=== PATIENT | male | born 1945 | race Caucasian/White ===

== ENCOUNTER 2018-08-22 17:08 | Inpatient (IN) | payer MEDICARE, OTHER ==
[~2018-08-22] VITALS: Ht 165.1 cm; Wt 93.0 kg
[2018-08-22] MEDS ORDERED: MAG HYDROX/AL HYDROX/SIMETH 30 ML UDC PO PRN (17:30)
[2018-08-22] MEDS ORDERED: MAGNESIUM HYDROXIDE 30 ML UDC PO PRN (17:30)
--- NOTE | 2018-08-22 18:00 | NUR ---
RN-CO: DR OTT MADE AWARE OF THE ADMISSION AND GAVE HIS ROUTINE ORDERS NOTED.
[2018-08-22] MEDS ORDERED: GABA-534 PO (18:01)
[2018-08-22] MEDS ORDERED: SENN-168 PO (18:01)
[2018-08-22] MEDS ORDERED: ATOR10TA PO (18:01)
[2018-08-22] MEDS ORDERED: ACAM333T8 PO (18:01)
[2018-08-22] MEDS ORDERED: CHOL400T11 PO (18:01)
[2018-08-22] MEDS ORDERED: FOLI1TAB16 PO (18:01)
[2018-08-22] MEDS ORDERED: CALC650T29 PO (18:01)
[2018-08-22 18:15] VITALS: BP 143/85
--- NOTE | 2018-08-22 18:44 | NUR ---
PT. ARRIVED IN THE VIA A GURNEY AND TRANSPORTED VIA AMBULANCE. PT. CAME FROM [facility]. PER HOLD PT. WITH SUICIDAL IDEATIONS WITH PLAN TO DRINK HIMSELF TO . PT. IS DEPRESSED, HOPELESS AND PARANOID AND UNABLE TO FORM ANY PLAN FOR SELF CARE AT THIS TIME. V/S TAKEN, SKIN ASSESSMENT DONE, CONTRABAND DONE. DR. OTT MADE AWARE OF THE ADMISSION AND WITH ORDERS. SANTOS BAKER PERSON TO NOTIFY WAS NOTIFIED. WILL ENDORSE TO THE INCOMING NURES FOR THE COMPLETION OF THE ADMISSION.
--- NOTE | 2018-08-22 20:12 | NUR ---
PAGED DR. BARAJAS FOR MED RECON.
[2018-08-22 20:38] VITALS: BP 149/81
[2018-08-22] MEDS: TEMAZEPAM 7.5 MG CAPSULE PO PRN ×2 (20:58→22:09)
--- NOTE | 2018-08-22 20:58 | NUR ---
VERBALIZED PLAN TO HURT HIMSELF, DID NOT DISCLOSE HOW TO CARRY OUT PLAN. TEMAZEPAM 15 MG TAB PO GIVEN.
[2018-08-22 21:53] LABS: CHOLESTEROL 147 mg/dL (<200); HDL CHOLESTEROL 53 mg/dL (40-60); LDL 79 mg/dL (0-99); TRIGLYCERIDES 106 mg/dL (30-150)
[2018-08-22] MEDS: GABAPENTIN 300 MG CAPSULE PO SCH (22:13)
[2018-08-22] MEDS: ATORVASTATIN 10 MG TABLET PO SCH (22:13)
[2018-08-23] MEDS: clonazePAM 0.5 MG TABLET PO PRN (03:40)
--- NOTE | 2018-08-23 03:40 | NUR ---
Up to toilet and back to bed, uneasy, moves around, klonopin 0.5 mg tab po given.
[2018-08-23] MEDS: ACETAMINOPHEN 325 MG TABLET PO PRN ×3 (04:35→21:15)
--- NOTE | 2018-08-23 04:35 | NUR ---
C/O FRONTAL PAIN, TYLENOL 650 MG TAB PO GIVEN.
[2018-08-23 06:51] LABS: ALANINE AMINOTRANSFERASE 23 U/L (12-78); ALBUMIN 3.3 g/dL (3.4-5.0); ALKALINE PHOSPHATASE 121 U/L (46-116); ASPARTATE AMINOTRANSFERASE 25 U/L (15-37); BILIRUBIN,TOTAL 0.5 mg/dL (0.2-1.0); CALCIUM, SERUM 9.1 mg/dL (8.5-10.1); CARBON DIOXIDE 26 mmol/L (21-32); CHLORIDE 104 mmol/L (98-107); CREATININE 0.8 mg/dL (0.6-1.3); GLUCOSE 92 mg/dL (74-106); MAGNESIUM 2.1 mg/dL (1.8-2.4); PHOSPHORUS 3.7 mg/dL (2.5-4.9); POTASSIUM 4.1 mmol/L (3.5-5.1); SODIUM SERUM 139 mmol/L (136-145); TOTAL PROTEIN, SERUM 6.7 g/dL (6.4-8.2); UREA NITROGEN, BLOOD 16 mg/dL (7-18)
[2018-08-23 07:40] LABS: CHOLESTEROL 138 mg/dL (<200); HDL CHOLESTEROL 49 mg/dL (40-60); LDL 77 mg/dL (0-99); TRIGLYCERIDES 99 mg/dL (30-150)
[2018-08-23 08:00] VITALS: BP 142/75
[2018-08-23] MEDS: CALCIUM CARB 600MG /VIT D 1 EACH TABLET PO SCH (08:36)
[2018-08-23] MEDS: FOLIC ACID 1 MG TABLET PO SCH (08:37)
[2018-08-23] MEDS: CHOLECALCIFEROL (VITAMIN D 3) 400 UNIT TABLET PO SCH (08:37)
[2018-08-23] MEDS: SENNOSIDES 8.6 MG TABLET PO SCH ×2 (08:41→16:24)
[2018-08-23 15:59] VITALS: BP 146/85
[2018-08-23 20:00] VITALS: BP 124/81
[2018-08-23] MEDS: GABAPENTIN 300 MG CAPSULE PO SCH (21:15)
[2018-08-23] MEDS: ATORVASTATIN 10 MG TABLET PO SCH (21:15)
[2018-08-23] MEDS: TEMAZEPAM 7.5 MG CAPSULE PO PRN (21:16)
[2018-08-24 08:00] VITALS: BP 119/84
[2018-08-24] MEDS: CALCIUM CARB 600MG /VIT D 1 EACH TABLET PO SCH (08:43)
[2018-08-24] MEDS: FOLIC ACID 1 MG TABLET PO SCH (08:44)
[2018-08-24] MEDS: CHOLECALCIFEROL (VITAMIN D 3) 400 UNIT TABLET PO SCH (08:44)
[2018-08-24] MEDS: SENNOSIDES 8.6 MG TABLET PO SCH ×2 (08:50→16:02)
[2018-08-24] MEDS: ESCITALOPRAM OXALATE (10 MG) 10 MG TABLET PO SCH (10:57)
[2018-08-24] MEDS: risperiDONE 1 MG TABLET PO SCH ×2 (10:57→16:00)
[2018-08-24] MEDS: ACETAMINOPHEN 325 MG TABLET PO PRN (11:01)
[2018-08-24] MEDS: HYDROCODONE/APAP 5/325MG 1 EACH TABLET PO PRN (16:02)
[2018-08-24 16:22] VITALS: BP 127/79
[2018-08-24 20:00] VITALS: BP 130/74
[2018-08-24] MEDS: GABAPENTIN 300 MG CAPSULE PO SCH (21:22)
[2018-08-24] MEDS: ATORVASTATIN 10 MG TABLET PO SCH (21:22)
[2018-08-24] MEDS: TEMAZEPAM 7.5 MG CAPSULE PO PRN (23:17)
[2018-08-25] MEDS: HYDROCODONE/APAP 5/325MG 1 EACH TABLET PO PRN ×3 (03:38→21:17)
[2018-08-25 08:00] VITALS: BP 129/63
[2018-08-25] MEDS: ESCITALOPRAM OXALATE (10 MG) 10 MG TABLET PO SCH (09:05)
[2018-08-25] MEDS: CALCIUM CARB 600MG /VIT D 1 EACH TABLET PO SCH (09:05)
[2018-08-25] MEDS: FOLIC ACID 1 MG TABLET PO SCH (09:05)
[2018-08-25] MEDS: SENNOSIDES 8.6 MG TABLET PO SCH ×2 (09:06→17:22)
[2018-08-25] MEDS: risperiDONE 1 MG TABLET PO SCH ×2 (09:06→17:22)
[2018-08-25] MEDS: CHOLECALCIFEROL (VITAMIN D 3) 400 UNIT TABLET PO SCH (09:10)
[2018-08-25] MEDS: clonazePAM 0.5 MG TABLET PO PRN (09:15)
[2018-08-25] MEDS: ACETAMINOPHEN 325 MG TABLET PO PRN ×2 (09:16→17:23)
--- NOTE | 2018-08-25 09:16 | NUR ---
RN NOTES ADMINISTERED KLONOPIN 0.5 MG PO PRN FOR ANXIETY, AND TYLENOL 650 MG PO PRN FOR RIGHT SHOULDER PAIN 5/10, V/S TAKEN BP-129/63,, P-74, CONTINUED MONITORING.
--- NOTE | 2018-08-25 11:21 | NUR ---
ALTON contacted [facility] Address: [address] [place] [address] and spoke with Apolonia, coding coordinator who stated that she needed a clinical packet to determine whether pt can return or not. ALTON will fax clinical packet to [phone] when pt is stable.
--- NOTE | 2018-08-25 11:59 | NUR ---
INITIAL DISCHARGE PLAN: Patient wishes to be discharged to a MD contracted fpc. ALTON contacted [facility] Address: [address] [place] [address] and spoke with Apolonia, college scouting coordinator who stated she needs clinical information to determine whether pt can return to facility or not. ALTON will help form a safe and proper discharge in collaboration with .
--- NOTE | 2018-08-25 13:35 | NUR ---
RN NOTES ADMINISTERED NARCO 5/325 MG PO PRN FOR RIGHT SHOULDER PAIN 04/04 PER PATIENT REQUEST, V/S TAKEN STABLE, BP-129/63, P-74, CONTINUED MONITORING.
[2018-08-25 16:00] VITALS: BP 160/73
--- NOTE | 2018-08-25 17:23 | NUR ---
RN NOTES ADMINISTERED TYLENOL 650 MG PO PRN FOR RIGHT SHOULDER PAIN, 5/10, PER PATIENT REQUEST, CONTINUED MONITORING.
[2018-08-25 20:01] VITALS: BP 141/78
[2018-08-25] MEDS: ATORVASTATIN 10 MG TABLET PO SCH (21:15)
[2018-08-25] MEDS: GABAPENTIN 300 MG CAPSULE PO SCH (21:16)
[2018-08-25] MEDS: TEMAZEPAM 7.5 MG CAPSULE PO PRN (22:15)
[2018-08-26] MEDS: HYDROCODONE/APAP 5/325MG 1 EACH TABLET PO PRN ×3 (05:44→22:54)
[2018-08-26 08:00] VITALS: BP 141/61
[2018-08-26] MEDS: FOLIC ACID 1 MG TABLET PO SCH (08:19)
[2018-08-26] MEDS: SENNOSIDES 8.6 MG TABLET PO SCH ×2 (08:19→16:34)
[2018-08-26] MEDS: CHOLECALCIFEROL (VITAMIN D 3) 400 UNIT TABLET PO SCH (08:19)
[2018-08-26] MEDS: ESCITALOPRAM OXALATE (10 MG) 10 MG TABLET PO SCH (08:19)
[2018-08-26] MEDS: CALCIUM CARB 600MG /VIT D 1 EACH TABLET PO SCH (08:19)
[2018-08-26] MEDS: risperiDONE 1 MG TABLET PO SCH ×2 (08:20→16:34)
--- NOTE | 2018-08-26 12:53 | NUR ---
GPS/RN-NOTES PATIENT REQUESTING NORCO FOR RIGHT SHOULDER PAIN.NORCO 5MG/325MG P.O GIVEN PRN ORDER. WILL CONT. MONITORING FOR SAFETY.
[2018-08-26 16:03] VITALS: BP 123/64
[2018-08-26 19:54] VITALS: BP 125/64
[2018-08-26] MEDS: GABAPENTIN 300 MG CAPSULE PO SCH (21:10)
[2018-08-26] MEDS: ATORVASTATIN 10 MG TABLET PO SCH (21:11)
[2018-08-27 08:00] VITALS: BP 136/79
[2018-08-27] MEDS: CALCIUM CARB 600MG /VIT D 1 EACH TABLET PO SCH (08:57)
[2018-08-27] MEDS: CHOLECALCIFEROL (VITAMIN D 3) 400 UNIT TABLET PO SCH (08:57)
[2018-08-27] MEDS: FOLIC ACID 1 MG TABLET PO SCH (08:58)
[2018-08-27] MEDS: ESCITALOPRAM OXALATE (10 MG) 10 MG TABLET PO SCH (08:58)
[2018-08-27] MEDS: risperiDONE 1 MG TABLET PO SCH ×2 (08:59→17:04)
[2018-08-27] MEDS: SENNOSIDES 8.6 MG TABLET PO SCH ×2 (09:00→17:00)
[2018-08-27] MEDS: HYDROCODONE/APAP 5/325MG 1 EACH TABLET PO PRN (10:47)
--- NOTE | 2018-08-27 10:47 | NUR ---
GPS/RN-NOTES PATIENT REQUESTING NORCO FOR RIGHT ARM PAIN.NORCO 5MG/325MG P.O GIVEN PRN ORDER. WILL CONT. MONITORING FOR SAFETY.
[2018-08-27 16:00] VITALS: BP 150/76
[2018-08-27] MEDS: clonazePAM 0.5 MG TABLET PO PRN (17:03)
--- NOTE | 2018-08-27 17:25 | NUR ---
RN NOTES ADMINISTERED KLONOPIN 0.5 MG PO PRN FOR ANXIETY, CONTINUED MONITORING.
[2018-08-27 20:00] VITALS: BP 153/68
[2018-08-27] MEDS: ATORVASTATIN 10 MG TABLET PO SCH (21:09)
[2018-08-27] MEDS: GABAPENTIN 300 MG CAPSULE PO SCH (21:09)
[2018-08-27] MEDS: TEMAZEPAM 7.5 MG CAPSULE PO PRN (22:03)
[2018-08-27 23:57] VITALS: BP 135/70
[2018-08-28] MEDS: HYDROCODONE/APAP 5/325MG 1 EACH TABLET PO PRN (04:27)
--- NOTE | 2018-08-28 04:28 | NUR ---
GPS RN NOTE, PATIENT HAS A COMPLAINT OF CHRONIC BILATERAL SHOULDER PAIN AT 8 OUT 10 ON THE PAIN SCALE AND IS REQUESTING NORCO AT THIS TIME. PATIENT VITAL SIGNS ARE STABLE. GAVE NORCO 5-325 1 TAB PO Q6HR PRN ORDERED. WILL REASSESS FOR PAIN AND I WILL CONTINUE TO MONITOR THIS PATIENT.
[2018-08-28 08:00] VITALS: BP 138/77
[2018-08-28] MEDS: FOLIC ACID 1 MG TABLET PO SCH (08:03)
[2018-08-28] MEDS: CALCIUM CARB 600MG /VIT D 1 EACH TABLET PO SCH (08:03)
[2018-08-28] MEDS: CHOLECALCIFEROL (VITAMIN D 3) 400 UNIT TABLET PO SCH (08:03)
[2018-08-28] MEDS: risperiDONE 1 MG TABLET PO SCH ×3 (08:04→16:20)
[2018-08-28] MEDS: ESCITALOPRAM OXALATE (10 MG) 10 MG TABLET PO SCH (08:06)
[2018-08-28] MEDS: SENNOSIDES 8.6 MG TABLET PO SCH ×3 (08:09→17:12)
[2018-08-28 15:59] VITALS: BP 149/93
[2018-08-28 20:00] VITALS: BP 127/69
[2018-08-28] MEDS: ATORVASTATIN 10 MG TABLET PO SCH (22:06)
[2018-08-28] MEDS: GABAPENTIN 300 MG CAPSULE PO SCH (22:06)
[2018-08-28] MEDS: TEMAZEPAM 7.5 MG CAPSULE PO PRN (22:06)
[2018-08-29] MEDS: HYDROCODONE/APAP 5/325MG 1 EACH TABLET PO PRN ×2 (00:33→13:25)
[2018-08-29 08:00] VITALS: BP 143/73
--- NOTE | 2018-08-29 08:00 | NUR ---
GPS RN AM NOTES RECEIVED PATIENT RESTING IN HIS ROOM, CALM AND COOPERATIVE, NO SOB, RESPIRATION EVEN AND UNLABORED, NO COMPLAIN OF PAIN/DISCOMFORT, COMPLIANT WITH MEDICATIONS. ALL NEEDS ATTENDED AND ANTICIPATED. WILL CONT. MONITORING Q15 MINS FOR SAFETY AND BEHAVIOR.
--- NOTE | 2018-08-29 08:10 | NUR ---
PT C/O RT FOOT RED RASHES NOTED AFTER HE TOOK A SHOWER FROM YESTERDAY.WILL NOTIFY MD AND REQUEST FOR A WOUND CONSULT.
[2018-08-29] MEDS: ESCITALOPRAM OXALATE (10 MG) 10 MG TABLET PO SCH (08:16)
[2018-08-29] MEDS: CHOLECALCIFEROL (VITAMIN D 3) 400 UNIT TABLET PO SCH (08:16)
[2018-08-29] MEDS: CALCIUM CARB 600MG /VIT D 1 EACH TABLET PO SCH (08:16)
[2018-08-29] MEDS: FOLIC ACID 1 MG TABLET PO SCH (08:16)
[2018-08-29] MEDS: SENNOSIDES 8.6 MG TABLET PO SCH ×2 (08:16→16:52)
[2018-08-29] MEDS: risperiDONE 1 MG TABLET PO SCH ×3 (08:17→16:53)
[2018-08-29] MEDS: ACETAMINOPHEN 325 MG TABLET PO PRN ×2 (08:21→21:24)
--- NOTE | 2018-08-29 08:52 | NUR ---
ALTON faxed clinical information to Apolonia, emergency management coordinator at [facility] Address: [address] [place] [address] for review.
--- NOTE | 2018-08-29 09:15 | NUR ---
SW received a phone call from Christie, recruiting coordinator at [facility] Address: [address] [place] [address] stating she will be coming on this present day to assess pt.
--- NOTE | 2018-08-29 12:00 | NUR ---
INFORMED DR MAURICE FAYE OF RT ANTERIOR FOOT RASHES WITH ORDERS FOR ATB PO AND LOTRIMIN OINTMENT
[2018-08-29] MEDS: CEPHALEXIN MONOHYDRATE 500 MG CAPSULE PO SCH ×2 (13:00→21:24)
[2018-08-29] MEDS: CLOTRIMAZOLE 1% 15 GM TUBE TP SCH ×2 (14:40→16:54)
[2018-08-29 16:00] VITALS: BP 128/63
[2018-08-29 20:00] VITALS: BP 111/54
[2018-08-29] MEDS: ATORVASTATIN 10 MG TABLET PO SCH (22:34)
[2018-08-29] MEDS: GABAPENTIN 300 MG CAPSULE PO SCH (22:34)
[2018-08-29] MEDS: TEMAZEPAM 7.5 MG CAPSULE PO PRN (22:35)
[2018-08-30 08:19] VITALS: BP_SYST 140; BP_SYST 142; BP_DIAS 79; BP_DIAS 87
[2018-08-30] MEDS: SENNOSIDES 8.6 MG TABLET PO SCH ×3 (08:24→16:23)
[2018-08-30] MEDS: CEPHALEXIN MONOHYDRATE 500 MG CAPSULE PO SCH ×2 (08:24→21:28)
[2018-08-30] MEDS: FOLIC ACID 1 MG TABLET PO SCH (08:24)
[2018-08-30] MEDS: risperiDONE 1 MG TABLET PO SCH ×2 (08:25→16:23)
[2018-08-30] MEDS: ESCITALOPRAM OXALATE (10 MG) 10 MG TABLET PO SCH (08:25)
[2018-08-30] MEDS: CHOLECALCIFEROL (VITAMIN D 3) 400 UNIT TABLET PO SCH (08:25)
[2018-08-30] MEDS: CALCIUM CARB 600MG /VIT D 1 EACH TABLET PO SCH (08:25)
[2018-08-30] MEDS: HYDROCODONE/APAP 5/325MG 1 EACH TABLET PO PRN (08:32)
[2018-08-30] MEDS: CLOTRIMAZOLE 1% 15 GM TUBE TP SCH ×2 (09:16→16:55)
[2018-08-30 16:00] VITALS: BP 128/65
[2018-08-30 20:00] VITALS: BP 129/71
[2018-08-30] MEDS: ATORVASTATIN 10 MG TABLET PO SCH (21:28)
[2018-08-30] MEDS: GABAPENTIN 300 MG CAPSULE PO SCH (21:28)
[2018-08-30] MEDS: TEMAZEPAM 7.5 MG CAPSULE PO PRN (21:28)
[2018-08-31 08:00] VITALS: BP 143/75
[2018-08-31] MEDS: CHOLECALCIFEROL (VITAMIN D 3) 400 UNIT TABLET PO SCH (08:25)
[2018-08-31] MEDS: ESCITALOPRAM OXALATE (10 MG) 10 MG TABLET PO SCH (08:26)
[2018-08-31] MEDS: risperiDONE 1 MG TABLET PO SCH ×2 (08:27→16:12)
[2018-08-31] MEDS: CEPHALEXIN MONOHYDRATE 500 MG CAPSULE PO SCH ×2 (08:27→20:43)
[2018-08-31] MEDS: FOLIC ACID 1 MG TABLET PO SCH (08:27)
[2018-08-31] MEDS: SENNOSIDES 8.6 MG TABLET PO SCH ×3 (08:27→16:39)
[2018-08-31] MEDS: CALCIUM CARB 600MG /VIT D 1 EACH TABLET PO SCH (08:27)
[2018-08-31] MEDS: CLOTRIMAZOLE 1% 15 GM TUBE TP SCH ×2 (08:28→16:39)
[2018-08-31 16:00] VITALS: BP 146/72
[2018-08-31] MEDS: HYDROCODONE/APAP 5/325MG 1 EACH TABLET PO PRN ×2 (16:13→22:15)
[2018-08-31 20:07] VITALS: BP 145/77
[2018-08-31] MEDS: ATORVASTATIN 10 MG TABLET PO SCH (20:44)
[2018-08-31] MEDS ORDERED: GABAPENTIN 300 MG CAPSULE ONE (21:37)
[2018-08-31] MEDS: GABAPENTIN 300 MG CAPSULE PO SCH (21:40)
[2018-08-31] MEDS: clonazePAM 0.5 MG TABLET PO PRN (22:15)
[2018-09-01 08:00] VITALS: BP 128/74
[2018-09-01] MEDS: CALCIUM CARB 600MG /VIT D 1 EACH TABLET PO SCH (08:19)
[2018-09-01] MEDS: FOLIC ACID 1 MG TABLET PO SCH (08:20)
[2018-09-01] MEDS: CEPHALEXIN MONOHYDRATE 500 MG CAPSULE PO SCH ×2 (08:20→21:29)
[2018-09-01] MEDS: risperiDONE 1 MG TABLET PO SCH ×2 (08:20→16:52)
[2018-09-01] MEDS: CHOLECALCIFEROL (VITAMIN D 3) 400 UNIT TABLET PO SCH (08:28)
[2018-09-01] MEDS: ESCITALOPRAM OXALATE (10 MG) 10 MG TABLET PO SCH (08:29)
[2018-09-01] MEDS: SENNOSIDES 8.6 MG TABLET PO SCH ×2 (08:29→16:52)
[2018-09-01] MEDS: CLOTRIMAZOLE 1% 15 GM TUBE TP SCH ×2 (08:31→17:40)
[2018-09-01] MEDS: HYDROCODONE/APAP 5/325MG 1 EACH TABLET PO PRN ×3 (08:48→23:04)
--- NOTE | 2018-09-01 08:48 | NUR ---
RN NOTES ADMINISTERED NARCO 5/325 MG PO PRN FOR RIGHT SHOULDER PAIN 02/02 PER PATIENT REQUEST, V/S TAKEN BP- 123/74, P-69, ENCOURAGED TO INCREASE FLUID INTAKE.
[2018-09-01 16:00] VITALS: BP 136/79
--- NOTE | 2018-09-01 16:52 | NUR ---
RN NOTES ADMINISTERED NARCO 5/325 MG PO PRN FOR RIGHT SHOULDER PAIN 02/02, V/S STABLE, CONTINUED MONITORING.
--- NOTE | 2018-09-01 19:30 | NUR ---
GPS RN NOTE, RECEIVED PATIENT AWAKE AND IN BED, NO S/S OR COMPLAINTS OF PAIN AT THIS TIME. PATIENT IS DISPLAYING NO S/S OF APPARENT DISTRESS AT THIS TIME. PATIENT BREATHING IS UNLABORED WITH EQUAL RISE AND FALL OF THE CHEST. PATIENT IS ALERT AND ORIENTED X 3 ON ROOM AIR WITH A SPO2 OF 97%. PATIENT IS COMPLIANT WITH MEDICATION, COOPERATIVE, ANXIOUS, DISORGANIZED, PARANOID, AND NEEDS REDIRECTION. PATIENT IS CONFUSED BUT DENIES SUICIDE IDEATIONS AND HOMICIDAL IDEATIONS AT THIS TIME. PATIENT ASSISTED WITH TURNING AND REPOSITIONING Q 2HRS AND PRN FOR COMFORT AND CIRCULATION. PATIENT HAS NO NEEDS AT THIS TIME. PATIENT EDUCATED ON THE USE OF THE CALL KENT. PATIENT BED SIDE RAILS UP X 2 FOR SAFETY, BED IS LOCKED, LOW, AND I WILL CONTINUE TO MONITOR AND MAINTAIN SAFETY Q15 MIN WITH THE HELP OF STAFF.
[2018-09-01 20:14] VITALS: BP 186/85
[2018-09-01] MEDS: GABAPENTIN 300 MG CAPSULE PO SCH (21:29)
[2018-09-01] MEDS: ATORVASTATIN 10 MG TABLET PO SCH (21:29)
--- NOTE | 2018-09-01 23:04 | NUR ---
GPS RN NOTE, PATIENT HAS A COMPLAINT OF CHRONIC BILATERAL SHOULDER PAIN AT 7 OUT 10 ON THE PAIN SCALE AND IS REQUESTING NORCO AT THIS TIME. PATIENT VITAL SIGNS ARE STABLE. GAVE NORCO 5-325 1 TAB PO Q6HR PRN ORDERED. WILL REASSESS FOR PAIN AND I WILL CONTINUE TO MONITOR THIS PATIENT.
[2018-09-02 08:00] VITALS: BP 148/80
--- NOTE | 2018-09-02 08:45 | NUR ---
RN-CO: DR OTT CALLED AND ORDER TO DISCHARGE THE PATIENT TO SNF, NOTED AND CARRIED OUT. PATIENT REMAIN CALM AND COOPERATIVE TO CARE. DENIED SUICIDAL AND HOMICIDAL IDEATION. DENIED AUDITORY AND VISUAL HALLUCINATION. NO ACUTE DISTRESS NOTED. MEDICALLY CLEARED FOR DISCHARGE.
[2018-09-02] MEDS: ESCITALOPRAM OXALATE (10 MG) 10 MG TABLET PO SCH (09:08)
[2018-09-02] MEDS: CHOLECALCIFEROL (VITAMIN D 3) 400 UNIT TABLET PO SCH (09:08)
[2018-09-02] MEDS: CALCIUM CARB 600MG /VIT D 1 EACH TABLET PO SCH (09:09)
[2018-09-02] MEDS: risperiDONE 1 MG TABLET PO SCH (09:09)
[2018-09-02] MEDS: SENNOSIDES 8.6 MG TABLET PO SCH (09:09)
[2018-09-02] MEDS: FOLIC ACID 1 MG TABLET PO SCH (09:09)
[2018-09-02] MEDS: CEPHALEXIN MONOHYDRATE 500 MG CAPSULE PO SCH (09:09)
[2018-09-02] MEDS: ACETAMINOPHEN 325 MG TABLET PO PRN (09:20)
[2018-09-02] MEDS: CLOTRIMAZOLE 1% 15 GM TUBE TP SCH (09:54)
--- NOTE | 2018-09-02 13:00 | NUR ---
RN-CO: REPORT WAS GIVEN TO RYAN POND BY PRIMARY RN CORNELIUS.
--- NOTE | 2018-09-02 13:06 | NUR ---
RN-CO: ALL BELONGINGS WERE GIVEN BACK TO THE PATIENT AND WAS PICKED UP BY AMBULANCE AT `1250PM. REPORT WAS GIVEN BY CORNELIUS POND( PRIMARY NURSE)
--- NOTE | 2018-09-02 14:00 | NUR ---
DISCHARGE NOTE: Pt was discharged at 1:00pm via [facility] trip#[id number] to [facility] Address: [address] [place] [address] . Pt has no family to notify. Pts mood was anxious with congruent affect. Pt denied suicidal/homicidal ideations and denied visual/auditory hallucinations. Pt will address his current ETOH abuse with and continue psychiatric treatment with Psychiatrist: Dr. Kerri Araujo [address] [address] [phone] and be under the care of Industrial Service Technician: Dr. Evan Anaya [address] [facility] [address] [address] [phone]. The multidisciplinary exitcare form was done, printed, signed, and given to the patient.
--- NOTE | 2018-09-17 08:38 | NUR ---
15 DAY SUBSTANCE ABUSE INTERVENTION: Excluded due to D/C to SNF.
== END 2018-09-02 12:50 | DRG 885 ==
LOC: GPS 17:08
PROVIDERS: ADMIT Psychiatry & Neurology Psychiatry; ATTEND Psychiatry & Neurology Psychiatry
DX: F33.3 Major depressive disorder, recurrent, severe with psychotic symptoms (principal); F23 Brief psychotic disorder; N39.0 Urinary tract infection, site not specified; L03.115 Cellulitis of right lower limb; E78.5 Hyperlipidemia, unspecified; E11.9 Type 2 diabetes mellitus without complications; I10 Essential (primary) hypertension; M19.011 Primary osteoarthritis, right shoulder; F10.10 Alcohol abuse, uncomplicated
CPT/HCPCS: 36415; 73030-TC; 80053-TC; 80061-TC; 83735-TC; 84100-TC; 87081-TC

== ENCOUNTER 2019-02-04 17:14 | Inpatient (IN) | payer MEDICARE, OTHER ==
[~2019-02-04] VITALS: Ht 172.7 cm; Wt 100.2 kg
[~2019-02-04 17:14] MED LIST: ACAM333T8 PO; ATOR10TA PO; CALC650T29 PO; CHOL400T11 PO; FOLI1TAB16 PO; GABA-534 PO; SENN-168 PO
--- NOTE | 2019-02-04 17:38 | NUR ---
SUN CASTANON FROM CARE FACILITY, WORSENING RIGHT ARM PAIN. ALSO C/O WORSENING DEPRESSION. PT AAOX3, VSS. DENIES CP, SOB, DIZZINESS, N/V AT THIS TIME. AWAITING EVAL BY MD & WILL CONT TO MONITOR.
[2019-02-04] MEDS ORDERED: ACETAMINOPHEN ES 500 MG TABLET PO ONE (18:00)
--- NOTE | 2019-02-04 18:02 | NUR ---
PT REFUSED TYL, ERMD AWARE.
[2019-02-04] MEDS ORDERED: ACETAMINOPHEN ES 500 MG TABLET ONE (18:22)
[2019-02-04 18:56] LABS: BASOPHILS % (AUTO) 0.5 % (0.0-2.0); EOSINOPHILS % (AUTO) 1.4 % (0.0-6.0); HEMATOCRIT 40 % (39-51); HEMOGLOBIN 13.8 g/dL (13.5-17.5); LYMPHOCYTES % (AUTO) 21.5 % (20.0-44.0); MEAN CORPUSCULAR HGB CONC 34 g/dl (31.0-36.0); MEAN CORPUSCULAR VOLUME 95 fL (80-96); MONOCYTES # (AUTO) 0.9 /CMM (0.1-1.30); MONOCYTES % (AUTO) 9.6 % (2.0-12.0); NEUTROPHILS # (AUTO) 6.1 /CMM (1.8-8.9); PLATELET COUNT (AUTO) 236 /CMM (150-450); RED BLOOD CELL COUNT(AUTO) 4.24 MIL/uL (4.5-6.0); WHITE BLOOD COUNT (AUTO) 9.2 K/uL (4.3-11.0)
[2019-02-04 19:02] LABS: CARBON DIOXIDE 26 mmol/L (21-32); CHLORIDE 103 mmol/L (98-107); CREATININE 0.8 mg/dL (0.6-1.3); GLUCOSE 113 mg/dL (74-106); POTASSIUM 4.1 mmol/L (3.5-5.1); SODIUM SERUM 139 mmol/L (136-145); UREA NITROGEN, BLOOD 15 mg/dL (7-18)
[2019-02-04 19:08] LABS: ALANINE AMINOTRANSFERASE 20 U/L (12-78); ALBUMIN 3.7 g/dL (3.4-5.0); ALCOHOL, BLOOD < 3 mg/dL (0-0); ALKALINE PHOSPHATASE 88 U/L (46-116); ASPARTATE AMINOTRANSFERASE 14 U/L (15-37); BILIRUBIN,TOTAL 0.3 mg/dL (0.2-1.0); TOTAL PROTEIN, SERUM 7.3 g/dL (6.4-8.2)
[2019-02-04 19:09] LABS: ACETAMINOPHEN < 5 ug/ml (10-30); SALICYLATE 1.9 mg/dL (2.8-20.0)
--- NOTE | 2019-02-04 19:30 | NUR ---
LOREN, GALLEY WORKER AT FOR EVAL
[2019-02-04] MEDS ORDERED: [UNRECOGNIZED DRUG - CODE] PO (19:33)
[2019-02-04] MEDS ORDERED: DIPH25CA83 PO (19:33)
[2019-02-04] MEDS ORDERED: ACET-2605 PO (19:33)
[2019-02-04] MEDS ORDERED: MAGN400O6 PO (19:33)
[2019-02-04] MEDS ORDERED: ESCI10TA PO (19:33)
[2019-02-04] MEDS ORDERED: ACET325T53 PO (19:33)
[2019-02-04] MEDS ORDERED: RISP1TAB7 PO (19:33)
[2019-02-04] MEDS ORDERED: BISA10SU61 RC (19:33)
[2019-02-04] MEDS ORDERED: NA P133E RC (19:33)
[2019-02-04] MEDS ORDERED: GABA-532 PO (19:33)
[2019-02-04] MEDS ORDERED: TRAM50TA2 PO (19:33)
--- NOTE | 2019-02-04 20:30 | NUR ---
PT STABLE, CALM & COOPERATIVE, NAD NOTED @ THIS TIME.
[2019-02-04] MEDS ORDERED: FUROSEMIDE 20 MG TABLET ONE (21:23)
[2019-02-04] MEDS ORDERED: FUROSEMIDE 20 MG TABLET PO ONE (21:30)
--- NOTE | 2019-02-04 21:32 | NUR ---
REPORT GIVEN TO SALTY AUSTIN AT [facility] FOR CONT OF CARE.
[2019-02-04 22:05] VITALS: BP 155/87
--- NOTE | 2019-02-04 22:05 | NUR ---
RN-NOTES: ADMITTED A 73-YR OLD MALE, FROM [facility] ON [address] FOR GD. PER HOLD, PT REPORTED HAVING ON AND OFF SUICIDAL THOUGHTS EXHIBITING BIZARRE BEHAVIOR. PT. IS DEPRESSED, HAS NOT BEEN SLEEPING FOR THE PAST 2DAYS AND HAVING SEVERE MOOD SWINGS. UPON FACE TO FACE ASSESSMENT, PATIENT IS ALERT, ORIENTED X3, CALM, COOPERATIVE WITH CARE, FEELING DEPRESSED, SAD, INTERACTS WHEN ENGAGED. NO SUICIDAL/HOMICIDAL IDEATION OR HALLUCINATIONS VERBALIZED. PT. WAS ADVISED OF THE HOLD. PT'S RIGHTS DISCUSSED GUIDE TO PRESCRIPTION MEDICATIONS PROVIDED. IN NO APPARENT DISTRESS NOTED. BELONGINGS WERE INVENTORIED AND CHECKED FOR CONTRABAND. PT. IS UNDER THE PSYCHIATRIC CARE OF DR. OTT ORDERS OBTAINED, AND UNDER THE MEDICAL CARE OF DIMA IQBAL, SEEN AND EXAMINED PT. AT BEDSIDE. SKIN ASSESSMENT DONE NOTED WITH RIGHT FOOT REDNESS. WOUND CONSULT ORDERED. PATIENT UNABLE TO SIGN THE ADMISSION PAPERWORK PT. 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 BED LOCKED AND PLACED ON LOWEST POSITION TO MAINTAIN SAFETY. FALL PRECAUTIONS IMPLEMENTED. WILL CONTINUE TO MONITOR Q15 MINS. FOR SAFETY AND BEHAVIOR. WILL CALL FAMILY OR SIGNIFICANT OTHER IN THE MORNING TO NOTIFY OF HIS ADMISSION.
[2019-02-04] MEDS ORDERED: ACETAMINOPHEN 325 MG TABLET PO PRN (22:30)
[2019-02-04] MEDS ORDERED: MAGNESIUM HYDROXIDE 30 ML UDC PO PRN ×2 (22:30→23:00)
[2019-02-04] MEDS ORDERED: MAG HYDROX/AL HYDROX/SIMETH 30 ML UDC PO PRN (22:30)
[2019-02-04 23:00] VITALS: BP 155/87
[2019-02-04] MEDS ORDERED: BISACODYL SUPP (10 MG) 10 MG/SUPP.RECT SUPP.RECT RC PRN (23:00)
[2019-02-04] MEDS: TAMSULOSIN 0.4 MG CAP.SR.24H PO SCH (23:14)
[2019-02-05 00:21] LABS: APPEARANCE,URINE CLEAR (CLEAR); BILIRUBIN,URINE NEGATIVE (NEGATIVE); BLOOD, URINE NEGATIVE Ery/uL (NEGATIVE); COLOR,URINE YELLOW (YELLOW); KETONES,URINE NEGATIVE (NEGATIVE); LEUKOCYTE ESTERASE ,URINE NEGATIVE (NEGATIVE); NITRITE, URINE NEGATIVE (NEGATIVE); PH,URINE 6.5 (5.0-8.0); PROTEIN,URINE NEGATIVE (NEGATIVE); UGLUCOSE NEGATIVE (NEGATIVE); UROBILINOGEN,URINE 0.2 EU/dL (0.2)
[2019-02-05] MEDS: TRAMADOL HCL 50 MG TABLET PO PRN ×2 (01:33→11:05)
[2019-02-05 08:00] VITALS: BP 137/63
--- NOTE | 2019-02-05 08:25 | NUR ---
ALTON contacted Zarina practice coordinator at [facility] Address: [address] [place] [address] and left a voicemail for call back.
[2019-02-05] MEDS: SENNOSIDES 8.6 MG TABLET PO SCH ×2 (08:27→16:40)
[2019-02-05] MEDS: FOLIC ACID 1 MG TABLET PO SCH (08:27)
[2019-02-05] MEDS: ESCITALOPRAM OXALATE (10 MG) 10 MG TABLET PO SCH (11:02)
[2019-02-05] MEDS: risperiDONE 1 MG TABLET PO SCH ×2 (11:02→16:40)
--- NOTE | 2019-02-05 11:06 | NUR ---
GPS/RN-NOTES PATIENT C/O 03/04 RIGHT SHOULDER PAIN AND REQUESTING FOR ULTRAM,ULTRAM 50MG 1 TAB. P.O GIVEN PRN ORDER. WILL CONT. MONITORING FOR SAFETY.
--- NOTE | 2019-02-05 12:09 | NUR ---
ALTON contacted pts friend Chela [phone], Chela stated her and pt have been friends for over 50 years and pt does not have family other than a nephew in [place] that she does not know anything about. Chela stated that she wanted to be notified when pt was discharged.
--- NOTE | 2019-02-05 12:50 | NUR ---
INITIAL DISCHARGE PLAN: Patient is uncertain if he wants to return to [facility] Address: [address] [place] [address] . SW will help form a safe and proper discharge in collaboration with .
--- NOTE | 2019-02-05 15:19 | NUR ---
ALTON contacted [facility] Address: [address] [place] [address] and spoke with Mara, employment evaluator/case manager who stated she will have DON call ALTON to determine whether or not pt will return to the facility.
--- NOTE | 2019-02-05 15:30 | NUR ---
SW received a call from Mara, ed case manager at [facility] Address: [address] [place] [address] stating the pt is not on a bed hold therefore, the facility is not accepting pt back.
[2019-02-05 16:00] VITALS: BP 100/64
[2019-02-05 20:00] VITALS: BP 110/58
[2019-02-05] MEDS: ATORVASTATIN 10 MG TABLET PO SCH (21:21)
[2019-02-05] MEDS: TAMSULOSIN 0.4 MG CAP.SR.24H PO SCH (21:21)
[2019-02-06] MEDS: TRAMADOL HCL 50 MG TABLET PO PRN ×3 (04:54→20:30)
[2019-02-06 06:45] LABS: BASOPHILS % (AUTO) 0.3 % (0.0-2.0); HEMATOCRIT 38 % (39-51); HEMOGLOBIN 13.1 g/dL (13.5-17.5); LYMPHOCYTES # (AUTO) 1.7 /CMM (0.8-4.8); LYMPHOCYTES % (AUTO) 21.4 % (20.0-44.0); MEAN CORPUSCULAR HGB CONC 35 g/dl (31.0-36.0); MEAN CORPUSCULAR VOLUME 95 fL (80-96); MONOCYTES # (AUTO) 0.9 /CMM (0.1-1.30); MONOCYTES % (AUTO) 11.6 % (2.0-12.0); NEUTROPHILS # (AUTO) 5.1 /CMM (1.8-8.9); NEUTROPHILS % (AUTO) 65.7 % (43.0-81.0); PLATELET COUNT (AUTO) 223 /CMM (150-450); RED BLOOD CELL COUNT(AUTO) 4.01 MIL/uL (4.5-6.0); WHITE BLOOD COUNT (AUTO) 7.8 K/uL (4.3-11.0)
[2019-02-06 07:08] LABS: ALANINE AMINOTRANSFERASE 17 U/L (12-78); ALBUMIN 3.6 g/dL (3.4-5.0); ALKALINE PHOSPHATASE 84 U/L (46-116); ASPARTATE AMINOTRANSFERASE 14 U/L (15-37); BILIRUBIN,TOTAL 0.5 mg/dL (0.2-1.0); CALCIUM, SERUM 9.1 mg/dL (8.5-10.1); CARBON DIOXIDE 28 mmol/L (21-32); CHLORIDE 103 mmol/L (98-107); CREATININE 0.9 mg/dL (0.6-1.3); GLUCOSE 102 mg/dL (74-106); POTASSIUM 4.3 mmol/L (3.5-5.1); SODIUM SERUM 140 mmol/L (136-145); TOTAL PROTEIN, SERUM 6.9 g/dL (6.4-8.2); UREA NITROGEN, BLOOD 13 mg/dL (7-18)
[2019-02-06 07:13] LABS: CHOLESTEROL 138 mg/dL (<200); HDL CHOLESTEROL 35 mg/dL (40-60); LDL 87 mg/dL (0-99); TRIGLYCERIDES 127 mg/dL (30-150)
[2019-02-06 08:00] VITALS: BP 136/68
[2019-02-06] MEDS: FOLIC ACID 1 MG TABLET PO SCH (08:15)
[2019-02-06] MEDS: SENNOSIDES 8.6 MG TABLET PO SCH ×4 (08:15→16:46)
[2019-02-06] MEDS: risperiDONE 1 MG TABLET PO SCH ×2 (08:16→16:44)
[2019-02-06] MEDS: ESCITALOPRAM OXALATE (10 MG) 10 MG TABLET PO SCH (08:16)
--- NOTE | 2019-02-06 09:55 | NUR ---
WOUND CARE CONSULT: PT PRESENTS WITH RED SKIN CONDITION TO RT DORSAL FOOT, PRESENT ON ADMISSION. RECOMMEND DPM CONSULT. DR HUGHES SEEING PT FOR FEET. WILL SEE PRN. DEFER TO DPM FOR WOUND TREATMENT PLAN. PT IS CONTINENT AND INDEPENDENT WITH BED MOBILITY.
--- NOTE | 2019-02-06 12:11 | NUR ---
Group Note: SW encouraged pt to attend group therapy on 02/06/19 at 11:30am discussing social supports for when they are in the hospital and for once they are discharged but the pt was unable to attend. Pt states he is not ready to join group.
--- NOTE | 2019-02-06 13:56 | NUR ---
DR. MAURICE BRIGGS IN THE UNIT AND ORDERED TO CHANGE TRAMADOL 50 MG PRN Q6HRS.
--- NOTE | 2019-02-06 15:54 | NUR ---
Group Note: SW encouraged pt to attend group therapy on 02/05/19 at 2pm discussing depression but the pt was unable to attend because he stated that he wanted to remain in his room.
[2019-02-06 16:00] VITALS: BP 113/65
[2019-02-06 20:00] VITALS: BP 123/65
[2019-02-06] MEDS: ATORVASTATIN 10 MG TABLET PO SCH (21:42)
[2019-02-06] MEDS: TEMAZEPAM 7.5 MG CAPSULE PO PRN (21:43)
[2019-02-06] MEDS: TAMSULOSIN 0.4 MG CAP.SR.24H PO SCH (21:43)
[2019-02-07] MEDS: TRAMADOL HCL 50 MG TABLET PO PRN ×4 (02:36→21:53)
[2019-02-07 07:59] VITALS: BP 111/60
[2019-02-07] MEDS: risperiDONE 1 MG TABLET PO SCH ×4 (09:00→17:58)
[2019-02-07] MEDS: SENNOSIDES 8.6 MG TABLET PO SCH ×2 (09:45→17:00)
[2019-02-07] MEDS: ESCITALOPRAM OXALATE (10 MG) 10 MG TABLET PO SCH ×2 (09:50→10:54)
[2019-02-07] MEDS: FOLIC ACID 1 MG TABLET PO SCH (10:00)
[2019-02-07 16:00] VITALS: BP 108/55
--- NOTE | 2019-02-07 17:00 | NUR ---
Patient complained of bilateral shoulder pain twice this shift, Tramadol 50 mg. given with effective results. they were given at 0930 and 1630.
[2019-02-07 20:00] VITALS: BP 136/93
[2019-02-07] MEDS: TAMSULOSIN 0.4 MG CAP.SR.24H PO SCH (21:37)
[2019-02-07] MEDS: ATORVASTATIN 10 MG TABLET PO SCH (21:37)
[2019-02-07] MEDS: diphenhydrAMINE HCL 25 MG CAPSULE PO PRN (21:39)
[2019-02-08] MEDS: TRAMADOL HCL 50 MG TABLET PO PRN ×2 (05:10→20:27)
[2019-02-08 08:00] VITALS: BP 109/62
[2019-02-08] MEDS: ACETAMINOPHEN 325 MG TABLET PO PRN (08:45)
[2019-02-08] MEDS: FOLIC ACID 1 MG TABLET PO SCH (08:45)
[2019-02-08] MEDS: SENNOSIDES 8.6 MG TABLET PO SCH ×2 (08:47→17:00)
[2019-02-08 16:05] VITALS: BP 127/62
[2019-02-08 19:54] VITALS: BP 140/76
[2019-02-08] MEDS: diphenhydrAMINE HCL 25 MG CAPSULE PO PRN (20:27)
[2019-02-08] MEDS: ATORVASTATIN 10 MG TABLET PO SCH (21:02)
[2019-02-08] MEDS: TAMSULOSIN 0.4 MG CAP.SR.24H PO SCH (21:03)
[2019-02-08] MEDS: TEMAZEPAM 7.5 MG CAPSULE PO PRN (21:29)
[2019-02-09] MEDS: TRAMADOL HCL 50 MG TABLET PO PRN ×4 (03:46→22:14)
--- NOTE | 2019-02-09 03:47 | NUR ---
GPS RN NOTE: PATIENT REQUESTED TO HAVE AN ORDER OF GABAPENTIN, PER PATIENT HE USED TO TAKE THAT BEFORE BUT IT WAS BEING D/C'D. NOTIFIED PERLITA CH AND RECEIVED AN ORDER TO FOLLOW UP TO THE DAYTIME PROVIDER THE REASON OF D/C. PATIENT C/O BILATERAL SHOULDER PAIN 04/04, TRAMADOL 50 MG PO GIVEN. PATIENT APPRECIATED. WILL CONTINUE TO MONITOR
[2019-02-09 08:00] VITALS: BP 121/63
[2019-02-09] MEDS: risperiDONE 1 MG TABLET PO SCH ×2 (08:32→17:31)
[2019-02-09] MEDS: ESCITALOPRAM OXALATE (10 MG) 10 MG TABLET PO SCH (08:32)
[2019-02-09] MEDS: FOLIC ACID 1 MG TABLET PO SCH (08:33)
[2019-02-09] MEDS: SENNOSIDES 8.6 MG TABLET PO SCH ×2 (08:34→17:00)
--- NOTE | 2019-02-09 10:27 | NUR ---
RN NOTE: PATIENT HAS BILATERAL SHOULDER PAIN. PRN TRAMADOL GIVEN. PATIENT ALSO STATED IN THE [facility] HE WAS GETTING 100MG TRAMADOL TO CONTROL HIS PAIN. WILL NOTIFY OF INFO.
--- NOTE | 2019-02-09 11:30 | NUR ---
Group Note: SW encouraged pt to attend group therapy on 02/09/19 at 9:30 discussing anger management for when they are in the hospital and for once they are discharged but the pt was unable to attend. Pt is sleeping and is not easily aroused.
[2019-02-09 16:00] VITALS: BP 118/67
[2019-02-09 19:31] VITALS: BP 131/64
[2019-02-09] MEDS: clonazePAM 0.5 MG TABLET PO PRN (19:42)
[2019-02-09] MEDS: ATORVASTATIN 10 MG TABLET PO SCH (21:28)
[2019-02-09] MEDS: diphenhydrAMINE HCL 25 MG CAPSULE PO PRN (21:28)
[2019-02-09] MEDS: TAMSULOSIN 0.4 MG CAP.SR.24H PO SCH (21:28)
[2019-02-09] MEDS: TEMAZEPAM 7.5 MG CAPSULE PO PRN (22:13)
[2019-02-10] MEDS: TRAMADOL HCL 50 MG TABLET PO PRN ×3 (04:34→20:21)
[2019-02-10 08:00] VITALS: BP 113/65
[2019-02-10] MEDS: FOLIC ACID 1 MG TABLET PO SCH (08:57)
[2019-02-10] MEDS: SENNOSIDES 8.6 MG TABLET PO SCH ×2 (08:58→17:09)
[2019-02-10] MEDS: ESCITALOPRAM OXALATE (10 MG) 10 MG TABLET PO SCH (08:58)
[2019-02-10] MEDS: risperiDONE 1 MG TABLET PO SCH ×2 (08:58→17:09)
[2019-02-10] MEDS: clonazePAM 0.5 MG TABLET PO PRN ×2 (08:58→17:09)
--- NOTE | 2019-02-10 14:04 | NUR ---
ALTON faxed SNF referral to [facility] Address: [address] [facility], [place] [address] fax: [phone] for review.
--- NOTE | 2019-02-10 15:33 | NUR ---
Group Note: SW encouraged pt to attend group therapy on 02/10/19 at 2pm discussing discharge planning but the pt refused to attend because he stated that he wanted to remain in his room.
[2019-02-10 16:00] VITALS: BP 110/60
[2019-02-10 20:22] VITALS: BP 120/60
[2019-02-10] MEDS: diphenhydrAMINE HCL 25 MG CAPSULE PO PRN (20:25)
[2019-02-10] MEDS: TAMSULOSIN 0.4 MG CAP.SR.24H PO SCH (21:02)
[2019-02-10] MEDS: ATORVASTATIN 10 MG TABLET PO SCH (21:02)
[2019-02-10] MEDS: TEMAZEPAM 7.5 MG CAPSULE PO PRN (21:34)
[2019-02-11] MEDS: TRAMADOL HCL 50 MG TABLET PO PRN ×4 (02:27→21:44)
[2019-02-11 08:00] VITALS: BP 122/64
[2019-02-11] MEDS: FOLIC ACID 1 MG TABLET PO SCH (08:05)
[2019-02-11] MEDS: risperiDONE 1 MG TABLET PO SCH ×2 (08:05→16:02)
[2019-02-11] MEDS: ESCITALOPRAM OXALATE (10 MG) 10 MG TABLET PO SCH (08:05)
[2019-02-11] MEDS: SENNOSIDES 8.6 MG TABLET PO SCH ×2 (08:05→16:01)
[2019-02-11] MEDS: ACETAMINOPHEN 325 MG TABLET PO PRN (09:32)
--- NOTE | 2019-02-11 09:40 | NUR ---
GPS RN NOTE PT REQUSTED TRAMADOL 50MG, PER PAIN HAS RIGHT SHOULDER PAIN. DR OTT PRESENT BEDSIDE. MEDICATION GIVEN PER PRN MEDICINE FOR PAIN. WILL CONTINUE TO MONITOR.
--- NOTE | 2019-02-11 10:10 | NUR ---
SW received a call from Karine, infection control coordinator at [facility] Address: [address] [facility], [place] [address] stating pt was not accepted due to his behavior.
--- NOTE | 2019-02-11 10:11 | NUR ---
ALTON faxed SNF referral to [facility] Address: [address] [place] [address] for review.
--- NOTE | 2019-02-11 11:28 | NUR ---
GPS RN NOTE SEEN AND EVALUATED BY MOLD MAKER HELPER CN. PT STATED CONCERN ABOUT TRAMADOL 100MG THAT HE USED TO TAKE BEFORE. MOLD MAKER HELPER CN MADE AWARE AND ORDERED LIDOCAINE PATCH 5% QD. AND KEEP THE ULTRAM ORDER IT IS. PT MADE AWARE. WILL CONTINUE TO MONITOR.
[2019-02-11] MEDS: LIDOCAINE 5% (PATCH) 1 EA PATCH TP SCH (12:14)
--- NOTE | 2019-02-11 12:31 | NUR ---
SW received a call from Tammi, customer supply coordinator at [facility] Address: [address] [place] [id number] stating pt has been accepted to the facility.
[2019-02-11 16:00] VITALS: BP 122/69
[2019-02-11 20:21] VITALS: BP 118/48
[2019-02-11] MEDS: diphenhydrAMINE HCL 25 MG CAPSULE PO PRN (20:53)
[2019-02-11] MEDS: ATORVASTATIN 10 MG TABLET PO SCH (21:01)
[2019-02-11] MEDS: TAMSULOSIN 0.4 MG CAP.SR.24H PO SCH (21:01)
[2019-02-11] MEDS: clonazePAM 0.5 MG TABLET PO PRN (22:43)
[2019-02-12] MEDS: ACETAMINOPHEN 325 MG TABLET PO PRN (03:09)
[2019-02-12] MEDS: TRAMADOL HCL 50 MG TABLET PO PRN ×2 (04:04→10:17)
[2019-02-12] MEDS: clonazePAM 0.5 MG TABLET PO PRN ×2 (05:25→11:34)
[2019-02-12] MEDS: diphenhydrAMINE HCL 25 MG CAPSULE PO PRN (06:44)
[2019-02-12 08:00] VITALS: BP 118/70
[2019-02-12] MEDS: risperiDONE 1 MG TABLET PO SCH (09:14)
[2019-02-12] MEDS: ESCITALOPRAM OXALATE (10 MG) 10 MG TABLET PO SCH (09:14)
[2019-02-12] MEDS: SENNOSIDES 8.6 MG TABLET PO SCH (09:15)
[2019-02-12] MEDS: FOLIC ACID 1 MG TABLET PO SCH (09:15)
--- NOTE | 2019-02-12 09:23 | NUR ---
DR. OTT GAVE AN ORDER TO D/C HOLD AND D/C TO [facility], TO CONTINUE SAME MEDS INCLUDING PRN AND TO FOLLOW UP WITH PSYCH AND MEDICAL DOCTORS.
--- NOTE | 2019-02-12 09:41 | NUR ---
DISCHARGE NOTE: : Pt will be discharged at 12:00pm via [facility] to [facility] Address: [address] [place] [address] . Pt has no family to notify. Pts mood is anxious with congruent affect. Pt denied visual/auditory hallucinations and denied suicidal/homicidal ideation. Pt will be under the care of Psychiatrist: Dr. Montemayor Address: [address] [place] [address] Phone: [phone] and Police Patrol Officer: Dr Mitchell Address: [address] [address] [phone]. The multidisciplinary exit care form was done, printed, signed, and given to the patient.
[2019-02-12] MEDS: LIDOCAINE 5% (PATCH) 1 EA PATCH TP SCH (11:34)
[2019-02-12 12:00] VITALS: BP 135/72
--- NOTE | 2019-02-12 12:15 | NUR ---
GPS RN NOTES PT DISCHARGED WITH AMBULANCE CREW TO [facility]. REPORT CALLED IN TO AFTAB ROWELL AT FACILITY. ID BAND REMOVED. VS STABLE FOR DISCHARGE. MED RECON DONE AND SENT WITH DISCHARGE INSTRUCTIONS. BELONGINGS WITH PATIENT. ALTON WHALEY SPOKE WITH PT REGARDING FACILTIY AFTER PT REFUSED GOING THERE. PT IS NOW ACCEPTING. ALL NEEDS ATTENDED TO. NO FAMILY TO NOTIFY OF DISCHARGE. Addendum: 02/12/19 at 1244 by BONNY RODRIGUEZ RN PT DENIES SUICIDAL/HOMICIDAL THOUGHTS. PT STABLE FOR DISCHARGE.
== END 2019-02-12 12:20 | DRG 885 ==
LOC: ER 17:17 → GPS 21:44
PROVIDERS: ADMIT Psychiatry & Neurology Psychiatry; ATTEND Nurse Practitioner Acute Care
DX: F33.3 Major depressive disorder, recurrent, severe with psychotic symptoms (principal); R45.851 Suicidal ideations; I10 Essential (primary) hypertension; E78.5 Hyperlipidemia, unspecified; E66.9 Obesity, unspecified; E11.9 Type 2 diabetes mellitus without complications; N40.0 Benign prostatic hyperplasia without lower urinary tract symptoms; M19.011 Primary osteoarthritis, right shoulder; L60.3 Nail dystrophy; G89.29 Other chronic pain; G47.00 Insomnia, unspecified; Z79.899 Other long term (current) drug therapy; Z79.4 Long term (current) use of insulin; F10.11 Alcohol abuse, in remission; Z73.6 Limitation of activities due to disability; Z87.81 Personal history of (healed) traumatic fracture; B35.3 Tinea pedis
CPT/HCPCS: 36415; 73030-TC; 80048-TC; 80053-TC; 80061-TC; 80076-TC; 80305; 81000-TC; 85025-TC; 87081-TC; 97116-TC; 97530-TC; G0480; Q0163

== ENCOUNTER → 2019-02-24 | Outpatient (CLI) | payer MEDICARE, OTHER ==
[~2019-02-24] MED LIST changes: +ACET-2605 PO; +ACET325T53 PO; +BISA10SU61 RC; -CALC650T29 PO; +DIPH25CA83 PO; +ESCI10TA PO; +GABA-532 PO; -GABA-534 PO; +MAGN400O6 PO; +NA P133E RC; +RISP1TAB7 PO; +TRAM50TA2 PO; +[UNRECOGNIZED DRUG - CODE] PO
== END ==
LOC: MSC 11:00
PROVIDERS: ATTEND Anesthesiology
DX: M19.011 Primary osteoarthritis, right shoulder (principal); M19.012 Primary osteoarthritis, left shoulder; M54.5 Low back pain; M62.830 Muscle spasm of back; Z79.891 Long term (current) use of opiate analgesic

== ENCOUNTER 2019-04-28 12:50 | Outpatient (CLI) | payer MEDICARE, OTHER | END 2019-04-28 23:59 | disposition home or self-care (01) | LOC: MSC 12:50 | PROVIDERS: ATTEND Anesthesiology | DX: M19.011 Primary osteoarthritis, right shoulder (principal); M19.012 Primary osteoarthritis, left shoulder; M54.5 Low back pain; M62.830 Muscle spasm of back; Z79.899 Other long term (current) drug therapy ==

== ENCOUNTER → 2019-08-11 | Outpatient (CLI) | payer OTHER, MEDICARE | LOC: MSC 10:45 | PROVIDERS: ATTEND Anesthesiology | DX: M54.5 Low back pain (principal); M62.830 Muscle spasm of back; M19.011 Primary osteoarthritis, right shoulder; M19.012 Primary osteoarthritis, left shoulder; F32.9 Major depressive disorder, single episode, unspecified; K27.9 Peptic ulcer, site unspecified, unspecified as acute or chronic, without hemorrhage or perforation; Z79.891 Long term (current) use of opiate analgesic ==

== ENCOUNTER → 2019-09-08 | Outpatient (CLI) | payer OTHER, MEDICARE ==
[~2019-09-08] MED LIST changes: -SENN-168 PO; +SENN-261 PO
== END ==
LOC: MSC 09:40
PROVIDERS: ATTEND Anesthesiology
DX: M54.5 Low back pain (principal); M62.830 Muscle spasm of back; M19.011 Primary osteoarthritis, right shoulder; M19.012 Primary osteoarthritis, left shoulder; F32.9 Major depressive disorder, single episode, unspecified; Z79.891 Long term (current) use of opiate analgesic; Z79.899 Other long term (current) drug therapy

== ENCOUNTER → 2019-09-29 | Outpatient (CLI) | payer OTHER, MEDICARE ==
[~2019-09-29] MED LIST changes: +SENN-168 PO; -SENN-261 PO
== END ==
LOC: MSC 10:30
PROVIDERS: ATTEND Anesthesiology
DX: M54.5 Low back pain (principal); M62.830 Muscle spasm of back; M19.011 Primary osteoarthritis, right shoulder; M19.012 Primary osteoarthritis, left shoulder; F11.20 Opioid dependence, uncomplicated; F32.9 Major depressive disorder, single episode, unspecified